=== PATIENT | female | born 1940 | race Caucasian/White ===

== ENCOUNTER 2018-11-28 11:08 | Emergency (ER) | payer BC, MEDICARE ==
--- NOTE | 2018-11-28 13:04 | UC ---
UC General HPI - HPI Summary HPI Summary: 78-year-old woman comes in with a chief complaint of a right hand and head injury after a fall. Just prior to arrival she tripped and fell. She hit her head and has a laceration on her right temporal. No loss of consciousness bleeding was stopped with direct pressure. Patient is not on any blood thinners. She didn't bend her glasses but did not break them. No complaint of any weakness or numbness difficulty with speech or vision. Patient's right hand hurts. The worst pain is distal right middle finger which she cannot extend the DIP. The laceration on the hand denies any other injuries other than she did bump her right knee but she has been gets broken is not worried about. - History of Current Complaint Chief Complaint: UCHeadInjury Stated Complaint: SP FALL-FACIAL INJURY,RT HAND INJURY Time Seen by Provider: 11/28/18 12:52 Pain Intensity: 8 - Allergy/Home Medications Allergies/Adverse Reactions: Allergies Allergy/AdvReac Type Severity Reaction Status Date / Time No Known Allergies Allergy Verified 11/28/18 12:01 Home Medications: Home Medications Enalapril/Hydrochlorothiazide [Enalapril-Hctz 5-12.5 mg Tab] 1 tab PO DAILY 01/09 [History Confirmed 11/28/18] Naproxen [Naproxen 250 mg tab] 1 tab PO BID 11/28/18 [History Confirmed 11/28/18 ] buPROPion TAB* [Wellbutrin TAB*] 1 tab PO BID 11/28/18 [History Confirmed ] PMH/Surg Hx/FS Hx/Imm Hx Previously Healthy: Yes Cardiovascular History: Hypertension - Surgical History Surgical History: Yes Surgery Procedure, Year, and Place: hysterectomy @ 28yo. benign tumors removed from each breast - Family History Known Family History: Positive: Non-Contributory - Social History Alcohol Use: Rare Substance Use Type: None Smoking Status (MU): Former Smoker When Did the Patient Quit Smoking/Using Tobacco: 2000 Review of Systems All Other Systems Reviewed And Are Negative: Yes Constitutional: Positive: Negative Skin: Positive: Other - SEE HPI Eyes: Positive: Negative ENT: Positive: Negative Respiratory: Positive: Negative Cardiovascular: Positive: Negative Gastrointestinal: Positive: Negative Motor: Positive: Decreased ROM - SEE HPI Neurovascular: Positive: Negative Musculoskeletal: Positive: Other: - SEE HPI Neurological: Positive: Negative Psychological: Positive: Negative Is Patient Immunocompromised?: No Physical Exam Triage Information Reviewed: Yes Appearance: Well-Appearing, No Pain Distress, Well-Nourished Vital Signs: Initial Vital Signs Temp 97.4 F 11/28/18 11:53 Pulse 56 11/28/18 11:53 Resp 16 11/28/18 11:53 BP 149/76 11/28/18 11:53 Pulse Ox 98 11/28/18 11:53 Vital Signs Reviewed: Yes Eye Exam: Normal Eyes: Positive: Conjunctiva Clear Neck: Positive: Supple, Nontender Respiratory: Positive: No respiratory distress Musculoskeletal: Positive: Other: - RT 3RD FINGER DIP IN FLEXION. PATIENT UNABLE TO EXTEND. IT DOES EXTEND WITH PASSIVE EXTENSION. NO SENSATION DEFICIT, NL CAP REFILL. WRIST NT WITH FROM. Neurological: Positive: Alert Psychological Exam: Normal Psychological: Positive: Age Appropriate Behavior Skin: Positive: Other - 1CM LACERATION RT DENOMINATIONAL; NOT ACTIVELY BLEEDING Procedures - Laceration/Wound Repair 1 Location: face Description: Linear Length, Depth and Shape: 1cm Betadine Prep?: No - soap and sterile saline Laceration/Wound Explored: clean Closure: Skin Adhesive Course/Dx - Course Course Of Treatment: Patient Name: DENISAH PIERRE Medical Record#: [id number] Ordering Physician: Lucian Pringle MD Acct.#: [id number] : 1940 Age: 78 Sex: F Location: [facility] Exam Date: 11/28/181257 ADM Status: [facility] ER Order Information: HAND - RIGHT MINIMUM 3 VIEWS Accession Number: [id number] CPT: 59927 INDICATION: Right hand injury. TECHNIQUE: 4 views of the right hand were obtained. FINDINGS: The bones appear osteopenic. The third finger is flexed at the distal interphalangeal joint. No fracture is seen. Joint spaces appear maintained. IMPRESSION: THE THIRD FINGER IS FLEXED AT THE DISTAL INTERPHALANGEAL JOINT, NO FRACTURE IS SEEN. <Electronically signed by Mahesh Logan MD in OV> 11/28/18 1344 I discussed the x-ray with the patient. No fracture was seen the patient is unable to fully extend her right third finger DIP. Patient's rt 3rd DIP was splinted in full extension by nursing patient neurovascular intact after splinting. For the finger the plan is to follow-up with orthopedic hands. I was able to glue the laceration in the right temporal. We discussed the signs and symptoms of head injury. Patient is not on a blood thinner she did not lose consciousness she's not nauseous and she'll vision changes no weakness or numbness therefore at this time we did not do a head CT. I discussed all this with the patient and she agreed to no head CT at this time. I did let her know that if her condition worsened are all she needed to go directly to the emergency department for further evaluation and care. - Diagnoses Provider Diagnosis: Mallet deformity of right middle finger, Facial laceration, Head injury Discharge - Sign-Out/Discharge Documenting (check all that apply): Patient Departure All imaging exams completed and their final reports reviewed: Yes - Discharge Plan Condition: Stable Disposition: HOME Patient Education Materials: Skull Fracture in Children (DC), Jammed Finger (ED ), Head Injury (ED), Skin Adhesive Care (ED), Facial Laceration (ED) Referrals: Tracy Trimble PA [Primary Care Provider] - Marbella Gonzalez MD [Medical Doctor] - Additional Instructions: FOLLOW UP WITH THE ORTHOPEDIC HAND SPECIALIST DR GONZALEZ OR ONE OF HER PARTNERS. GO TO THE EMERGENCY DEPARTMENT IF YOUR CONDITION WORSENS; HEADACHES, WEAKNESS, NUMBNESS, UNEXPLAINED VOMITING, CONFUSION OR ANY QUESTIONS OR CONCERNS. - Billing Disposition and Condition Condition: STABLE Disposition: Home
== END 2018-11-28 14:30 | disposition home or self-care (01) ==
LOC: UCCORT 11:08
DX: S01.81XA Laceration without foreign body of other part of head, initial encounter (principal); M20.011 Mallet finger of right finger(s); I10 Essential (primary) hypertension; W01.0XXA Fall on same level from slipping, tripping and stumbling without subsequent striking against object, initial encounter; Y93.01 Activity, walking, marching and hiking; Y92.019 Unspecified place in single-family (private) house as the place of occurrence of the external cause; Z87.891 Personal history of nicotine dependence
CPT/HCPCS: 99202; G0463